=== PATIENT | female | born 1985 | race Caucasian/White ===

== ENCOUNTER 2016-12-22 11:30 | Emergency (ER) | payer OTHER ==
--- NOTE | 2016-12-22 11:45 | PDOC ---
History of Present Illness - General Chief Complaint: Abscess Boil Stated Complaint: ABSCESS Time Seen by Provider: 12/22/16 11:33 History Source: Patient Exam Limitations: No Limitations - History of Present Illness Initial Comments: 12/22/16 11:45 This is a 31 yr old F who presents with complaints of warm tender bump to the right groin [x 1 day. No drainage Pt describes 5/10 pressure like pain w/o radiation. Pt denies having taken any medicines to alleviate their pain. Pain is exacerbated by touch and pressure, no obvious alleviating factors. No surrounding erytehma ROS: GENERAL/CONSTITUTIONAL: No: fever, chills, weakness, loss of appetite. SKIN: Yes: right groin abscess No: lesions, pallor, rash or easy bruising. PE: Head normocephalic, atraumatic Neck: Supple no cervical adenopathy no nuchal rigidity Lungs: Clear to auscultation bilaterally, no wheezes rales or rhonchi appreciated Heart: S1-S2 without murmur Skin: Normal color, 1 cm indurated area, mild local erythema, no drainage, no fluctuance, no streaking, no surounding erythema The patient is significantly tender over the area, without any streaking or bony tenderness surrounding. Past History - Past Medical History Allergies/Adverse Reactions: Allergies Allergy/AdvReac Type Severity Reaction Status Date / Time No Known Allergies Allergy Verified 12/22/16 11:33 Home Medications: Ambulatory Orders Cephalexin Monohydrate [Keflex -] 250 mg PO Q6H #20 capsule 12/22/16 Asthma: Yes - Suicide/Smoking/Psychosocial Hx Smoking History: Never smoked Have you smoked in the past 12 months: No Number of Cigarettes Smoked Daily: 3 Hx Alcohol Use: No Drug/Substance Use Hx: No Substance Use Type: None Medical Decision Making - Medical Decision Making 12/22/16 11:50 31 yo F presenting with 1 day of right groin pain with associated bump Clinical impression: Based on my physical exam findings the patient has a superficial skin abscess located at the right groin which was not ready to be drained. Pt directed to follow up with PCP/Referral within 24-48 hours and to go to ED if they develop any new worsening symptoms. Pt expressed understanding and agreement with above stated plan. Recommend warm compress and antibiotics 12/22/16 11:56 *DC/Admit/Observation/Transfer Diagnosis at time of Disposition: Ingrown hair - Discharge Dispostion Disposition: HOME Condition at time of disposition: Stable Admit: No - Prescriptions Prescriptions: Cephalexin Monohydrate [Keflex -] 250 mg PO Q6H #20 capsule - Referrals Referrals: Jourdan Collier MD [Primary Care Provider] - - Patient Instructions Printed Discharge Instructions: Tips to Help You Stop Smoking, DI for Skin Abscess Additional Instructions: Please apply warm compresses to the area - aim for 10 minutes 2-3 times per day Please tylenol or Motrin for pain. Please take antibiotics as prescribed Please monitor for fevers or chills, increased redness, increased size - Post Discharge Activity Forms/Work/School Notes: Back to Work
[2016-12-22 11:47] VITALS: BP 113/74; PULSE 94; TEMP 98.5; BMI 25.2
== END 2016-12-22 12:04 | disposition home or self-care (01) ==
LOC: FER 11:30
DX: L73.1 Pseudofolliculitis barbae (principal)
CPT/HCPCS: 99281-25

== ENCOUNTER 2017-02-24 19:44 | Emergency (ER) | payer OTHER ==
[2017-02-24 19:53] VITALS: BP 111/62; PULSE 80; TEMP 99.2; BMI 26.2
--- NOTE | 2017-02-24 20:05 | PDOC ---
History of Present Illness - General History Source: Patient Exam Limitations: No Limitations - History of Present Illness Initial Comments: 02/24/17 20:22 The patient is a 31 year old female with a significant past medical history of asthma who presents to the ED with complaints of cough and wheezing since yesterday. The patient reports a gradual onset of a non productive dry cough yesterday while she was at work. She reports throat pain and back pain secondary to cough. The patient also reports intermittent wheezing and shortness of breath. She states she used an inhaler and nebulizer treatment at home with no relief of present symptoms. The patient states she has been around pets recently. Notes her last menstrual period was on 01/10/17. Denies getting her flu shot this year. Denies fever or chills. Denies chest pain. Denies abdominal pain, nausea, vomiting, or diarrhea. Denies any other symptoms. Social hx: The patient is a current every day smoker (3-4 cigarettes a day) and a social drinker. <Bar Arango - Last Filed: 02/24/17 20:31> <Perla Lopez - Last Filed: 02/25/17 05:44> - General Chief Complaint: Asthma Stated Complaint: WHEEZING Past History <Bar Arango - Last Filed: 02/24/17 20:31> - Past Medical History Asthma: Yes COPD: No - Suicide/Smoking/Psychosocial Hx Smoking History: Current every day smoker Have you smoked in the past 12 months: No Number of Cigarettes Smoked Daily: 3 Information on smoking cessation initiated: Yes 'Breaking Loose' booklet given: 02/24/17 Hx Alcohol Use: Yes (OCCASIONAL) Drug/Substance Use Hx: No Substance Use Type: None <Perla Lopez - Last Filed: 02/25/17 05:44> - Past Medical History Allergies/Adverse Reactions: Allergies Allergy/AdvReac Type Severity Reaction Status Date / Time No Known Allergies Allergy Verified 12/22/16 11:33 Home Medications: Ambulatory Orders Albuterol Sulfate Inhaler - [Ventolin HFA Inhaler -] 2 inh PO Q6H #1 inh Albuterol Sulfate Inhaler - [Ventolin Hfa Inhaler -] 1 - 2 inh PO Q4H #1 inhaler 02/24/17 Albuterol Sulfate Inhaler - [Ventolin Hfa Inhaler -] 1 puff IH PRN PRN 02/24/17 Prednisone [Deltasone -] 2 tab PO DAILY #10 tablet 02/24/17 Prednisone [Deltasone -] 2 tab PO DAILY #10 tablet 02/24/17 Review of Systems - Review of Systems Able to Perform ROS?: Yes Comments:: 02/24/17 20:32 CONSTITUTIONAL: No reported: Fever, Chills, Diaphoresis, Generalized Weakness, Malaise, Loss of Appetite HEENT: No reported: Rhinorrhea, Nasal Congestion, Throat Pain, Throat Swelling, Difficulty Swallowing, Mouth Swelling, Ear Pain, Eye Pain, Visual Changes CARDIOVASCULAR: No reported: Chest Pain, Syncope, Palpitations, Irregular Heart Rate, Lightheadedness, Peripheral Edema RESPIRATORY: + cough, wheezing, shortness of breath No reported: Orthopnea, Stridor, Hemoptysis GASTROINTESTINAL: No reported: Abdominal pain, Abdominal Distension, Nausea, Vomiting, Diarrhea, Constipation, Melena, Hematochezia GENITOURINARY: No reported: Dysuria, Frequency, Urgency, Hesitancy, Flank Pain, Genital Pain MUSCULOSKELETAL: No reported: Myalgia, Arthralgia, Joint Swelling, Back pain, Neck Pain SKIN: No reported: Rash, Itching, Pallor HEMEATOLOGIC/IMMUNOLOGIC: No reported: Easy Bleeding, Easy Bruising, Lymphadenopathy, Frequent infections ENDOCRINE: No reported: Unexplained Weight Gain, Unexplained Weight Loss, Heat Intolerance , Cold Intolerance NEUROLOGIC: No reported: Headache, Focal Weakness, Paresthesias, Vertigo, Lightheadedness, Unsteady Gait, Seizure, Mental Status Changes, Incontinence PSYCHIATRIC: No reported: Anxiety, Depression All Other Systems: Reviewed and Negative <Bar Arango - Last Filed: 02/24/17 20:31> *Physical Exam - Vital Signs Last Vital Signs Temp Pulse Resp BP Pulse Ox 99.2 F 80 16 111/62 95 02/24/17 19:51 02/24/17 19:51 02/24/17 19:51 02/24/17 19:51 02/24/17 19:51 - Physical Exam Comments: 02/24/17 20:32 GENERAL: The patient is awake, alert, and fully oriented, Nontoxic - in no acute distress. HEAD: Normocephalic, atraumatic. EYES: extraocular movements intact, sclera anicteric, conjunctiva clear. ENT: Normal voice, Moist mucous membranes. NECK: Normal range of motion, supple LUNGS: + diffuse wheezing throughout. no rhonchi, no rales. HEART: Regular rate and rhythm, without murmur, rub or gallop. ABDOMEN: Soft, nontender, normoactive bowel sounds. No guarding, no rebound.No CVA tenderness EXTREMITIES: Normal range of motion, no edema. No clubbing or cyanosis. No cords, erythema, or tenderness. NEUROLOGICAL: No facial assymetry, Normal speech, PSYCH: Normal mood, normal affect. SKIN: Warm, Dry, normal turgor, <Bar Arango - Last Filed: 02/24/17 20:31> - Vital Signs Last Vital Signs Temp Pulse Resp BP Pulse Ox 99.2 F 80 16 111/62 95 02/24/17 19:51 02/24/17 19:51 02/24/17 19:51 02/24/17 19:51 02/24/17 19:51 <Perla Lopez - Last Filed: 02/25/17 05:44> ED Treatment Course - Medications Given in the ED: ED Medications Discontinued Medications Generic Name Dose Route Start Last Admin Trade Name Freq PRN Reason Stop Dose Admin Albuterol/Ipratropium 1 amp 02/24/17 20:14 02/24/17 20:18 Duoneb - NEB 02/24/17 20:15 1 amp ONCE ONE Administration Prednisone 40 mg 02/24/17 20:14 02/24/17 20:18 Deltasone - PO 02/24/17 20:15 40 mg ONCE ONE Administration <Bar Arango - Last Filed: 02/24/17 20:31> Medical Decision Making - Medical Decision Making 02/25/17 05:42 Pt comes with cough x 1 day. She has asthma and she is a smoker. 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 Pt with simlpel asthma exacerbation; likely viral URI Initial PF 210 up to 240 and improving after nebs. CXR normal. She will be discharged with meds. Reccomend smoking cessation. Follow with PMD. <Perla Lopez - Last Filed: 02/25/17 05:44> *DC/Admit/Observation/Transfer - Attestations Scribe Attestion: 02/24/17 20:32 Documentation prepared by Bar Arango, acting as medical lab scientist for Perla Lopez MD <Bar Arango - Last Filed: 02/24/17 20:31> - Discharge Dispostion Admit: No <Perla Lopez - Last Filed: 02/25/17 05:44> Diagnosis at time of Disposition: Asthma, Viral upper respiratory illness - Discharge Dispostion Disposition: HOME Condition at time of disposition: Improved - Prescriptions Prescriptions: Albuterol Sulfate Inhaler - [Ventolin Hfa Inhaler -] 1 - 2 inh PO Q4H #1 inhaler Albuterol Sulfate Inhaler - [Ventolin HFA Inhaler -] 2 inh PO Q6H #1 inh Prednisone [Deltasone -] 2 tab PO DAILY #10 tablet Prednisone [Deltasone -] 2 tab PO DAILY #10 tablet - Referrals Referrals: Jourdan Collier MD [Primary Care Provider] - - Patient Instructions Printed Discharge Instructions: Smoking Cessation Drugs: Nicotine Replacement Products, Asthma -- Adult, Smoking Cessation Associated with Decreases Risk of Complications After Mick - Post Discharge Activity Forms/Work/School Notes: Back to Work
[2017-02-24] MEDS ORDERED: ALBUTEROL SO4 2.5/IPRATROPIUM 0.5 INH SOL 3 ML VIAL.NEB. NEB ONE ×3 (20:14→21:05)
[2017-02-24] MEDS ORDERED: predniSONE 20 MG TABLET (UD) PO ONE (20:14)
== END 2017-02-24 21:30 | disposition home or self-care (01) ==
LOC: FER 19:44
PROC: 3E0F7GC Introduction of Other Therapeutic Substance into Respiratory Tract, Via Natural or Artificial Opening (ICD-10-PCS; principal; 2017-02-24)
DX: J45.909 Unspecified asthma, uncomplicated (principal); J06.9 Acute upper respiratory infection, unspecified; B97.89 Other viral agents as the cause of diseases classified elsewhere; F17.210 Nicotine dependence, cigarettes, uncomplicated
CPT/HCPCS: 71020-TC; 99281-25

== ENCOUNTER 2020-05-03 08:06 | Emergency (ER) | payer OTHER ==
[2020-05-03 08:47] VITALS: BP 111/62; PULSE 90; TEMP 98.6; BMI 27.2
== END 2020-05-03 08:58 | disposition home or self-care (01) ==
LOC: FER 08:06
DX: R09.81 Nasal congestion (principal); Z11.52 Encounter for screening for COVID-19
CPT/HCPCS: 99283-25; C9803; U0003

== ENCOUNTER 2021-02-06 18:28 | Observation (INO) | payer OTHER ==
[2021-02-06 18:58] VITALS: BMI 24.4
[2021-02-06] MEDS ORDERED: SODIUM CHLORIDE 0.9% 500 ML INFUS.BAG IV ONE (22:47)
[2021-02-06] MEDS ORDERED: ACETAMINOPHEN 500 MG TABLET (FP) PO ONE (22:51)
[2021-02-06] MEDS ORDERED: ACETAMINOPHEN INJECTION 100 ML IVPB ONE (22:53)
[2021-02-06] MEDS ORDERED: ACETAMINOPHEN 1000 MG/100 ML VIAL IVPB ONE (22:59)
[2021-02-06 23:09] LABS: BASO % 0.7 % (0-2.0); EOS % 0.5 % (0-4.5); HEMATOCRIT 35.6 % (32.4-45.2); HEMOGLOBIN 12.1 GM/dL (10.7-15.3); LYMPH % 22.6 % (8-40); MCH 31.3 pg (25.7-33.7); MEAN CELL VOLUME 92.1 fl (80-96); MEAN PLT VOLUME 6.8 fl (7.5-11.1); MONO % 5.9 % (3.8-10.2); NEUT % 70.3 % (42.8-82.8); PLATELET COUNT 229 10^3/uL (134-434); RBC 3.86 M/mm3 (3.60-5.2); RDW 13.5 % (11.6-15.6); WHITE BLOOD COUNT 11.5 K/mm3 (4.0-10.0)
[2021-02-06 23:28] LABS: CALCIUM 8.5 mg/dL (8.5-10.1)
[2021-02-06 23:29] LABS: ALBUMIN 3.1 g/dl (3.4-5.0); BLOOD UREA NITROGEN 6.9 mg/dL (7-18)
[2021-02-06 23:32] LABS: CREATININE 0.4 mg/dL (0.55-1.3)
[2021-02-06 23:33] LABS: BILIRUBIN,TOTAL 0.3 mg/dL (0.2-1); TOT PROT 6.8 g/dl (6.4-8.2)
[2021-02-07 00:16] LABS: EPI CELLS 5 /uL (0-25.1); HYALINE CASTS 1 /uL (0-3.1); URINE APPEARANCE CLOUDY; URINE BACTERIA 523 /uL (0-1359); URINE BILIRUBIN NEGATIVE (NEGATIVE); URINE COLOR YELLOW; URINE GLUCOSE (UA) NEGATIVE (NEGATIVE); URINE KETONE TRACE (NEGATIVE); URINE LEUK ESTERASE 2+ (NEGATIVE); URINE NITRITE NEGATIVE (NEGATIVE); URINE PROTEIN 2+ (NEGATIVE); URINE RBC 286 /uL (0-23.9); URINE UROBILINOGEN 0.2 mg/dL (0.2-1.0); URINE WBC 2873 /uL (0-25.8)
[2021-02-07] MEDS ORDERED: CEFTRIAXONE 1,000 MG in DEXTROSE 5%-WATER - 50 ML IVPB ONE (00:48)
[2021-02-07] MEDS ORDERED: CEFTRIAXONE 1 GM/50 ML BAG ONE ×2 (02:21→14:33)
[2021-02-07] MEDS ORDERED: LACTATED RINGERS SOLUTION 1000 ML INFUS.BAG IV ONE (06:39)
[2021-02-07] MEDS ORDERED: FLU VACC QS2021-22(6MOS UP)/PF 60 MCG/0.5 ML SYRINGE IM ONE (12:54)
[2021-02-07] MEDS ORDERED: CEFTRIAXONE 1 GM in DEXTROSE 5%-WATER - 50 ML IVPB SCH ×2 (14:00→22:00)
[2021-02-08 07:34] LABS: BASO % 0.4 % (0-2.0); EOS % 1.1 % (0-4.5); HEMATOCRIT 31.8 % (32.4-45.2); HEMOGLOBIN 11.1 GM/dL (10.7-15.3); LYMPH % 25.3 % (8-40); MEAN CELL VOLUME 91.4 fl (80-96); MEAN PLT VOLUME 7.3 fl (7.5-11.1); MONO % 5.6 % (3.8-10.2); NEUT % 67.6 % (42.8-82.8); PLATELET COUNT 213 10^3/uL (134-434); RBC 3.48 M/mm3 (3.60-5.2); RDW 13.5 % (11.6-15.6); WHITE BLOOD COUNT 8.7 K/mm3 (4.0-10.0)
[2021-02-08 08:54] VITALS: BP 96/57; PULSE 67; TEMP 99.3
[2021-02-08] MEDS ORDERED: cefTRIAXone SODIUM 1 GM VIAL ONE (13:15)
[2021-02-08] MEDS ORDERED: DEXTROSE 5%-WATER - 50 ML IVPB ONE (13:16)
[2021-02-08] MEDS ORDERED: CEFTRIAXONE 1 GM in DEXTROSE 5%-WATER - 50 ML IVPB SCH (14:00)
[2021-02-08] MEDS ORDERED: CEPHALEXIN MONOHYDRATE 500 MG CAPSULE (UD) PO SCH (18:00)
== END 2021-02-08 16:49 | disposition home or self-care (01) ==
LOC: JERFT 18:28 → JERBED 02-07 00:49 → J4W 02-07 21:58
PROVIDERS: ADMIT Internal Medicine; ATTEND Internal Medicine
PROC: 3E033NZ Introduction of Analgesics, Hypnotics, Sedatives into Peripheral Vein, Percutaneous Approach (ICD-10-PCS; principal; 2021-02-07)
PROC: 3E03329 Introduction of Other Anti-infective into Peripheral Vein, Percutaneous Approach (ICD-10-PCS; 2021-02-07)
PROC: 3E0337Z Introduction of Electrolytic and Water Balance Substance into Peripheral Vein, Percutaneous Approach (ICD-10-PCS; 2021-02-07)
DX: R10.9 Unspecified abdominal pain (principal); R10.31 Right lower quadrant pain; J45.909 Unspecified asthma, uncomplicated; O26.92 Pregnancy related conditions, unspecified, second trimester; Z3A.14 14 weeks gestation of pregnancy; Z87.891 Personal history of nicotine dependence; N39.0 Urinary tract infection, site not specified; O34.82 Maternal care for other abnormalities of pelvic organs, second trimester; N10 Acute pyelonephritis; D56.3 Thalassemia minor; N83.209 Unspecified ovarian cyst, unspecified side
CPT/HCPCS: 36415; 76775-TC; 76801-TC; 80053; 81003; 84702; 85025; 86850; 86900; 86901; 87086; 87186; 96365; 96366; 96375; 99285-25; C9803; G0378; J0131; U0003; U0005

== ENCOUNTER 2021-08-14 07:30 | Inpatient (IN) | payer OTHER ==
[2021-08-14 08:31] VITALS: BMI 30.1
[2021-08-14] MEDS ORDERED: FENTANYL/BUPIVACAINE/NS/PF - PCEA - 50 ML DISP.SYRIN EP ONE (08:35)
[2021-08-14 08:44] LABS: BASO % 0.4 % (0-2.0); EOS % 0.2 % (0-4.5); HEMATOCRIT 34.2 % (32.4-45.2); HEMOGLOBIN 11.3 GM/dL (10.7-15.3); LYMPH % 10.6 % (8-40); MCH 28.8 pg (25.7-33.7); MEAN CELL VOLUME 87.2 fl (80-96); MEAN PLT VOLUME 7.8 fl (7.5-11.1); MONO % 2.4 % (3.8-10.2); NEUT % 86.4 % (42.8-82.8); PLATELET COUNT 194 10^3/uL (134-434); RBC 3.92 M/mm3 (3.60-5.2); RDW 18.3 % (11.6-15.6); WHITE BLOOD COUNT 12.6 K/mm3 (4.0-10.0)
[2021-08-14 08:50] LABS: INR 0.97 (0.83-1.09); PROTHROMBIN TIME (PATIENT) 11.1 SEC (9.7-13.0)
[2021-08-14 09:02] LABS: BLOOD UREA NITROGEN 8.2 mg/dL (7-18); CALCIUM 8.9 mg/dL (8.5-10.1)
[2021-08-14 09:06] LABS: CREATININE 0.5 mg/dL (0.55-1.3)
[2021-08-14] MEDS ORDERED: NALOXONE HCL 0.4 MG/ML VIAL IVPUSH PRN (09:14)
[2021-08-14] MEDS ORDERED: FENTANYL/BUPIVACAINE/NS/PF - PCEA - 50 ML DISP.SYRIN EP SCH (09:15)
[2021-08-14] MEDS ORDERED: ELECTROLYTE-148 SOLN 1,000 ML IV SCH (09:45)
[2021-08-14 10:10] LABS: COCAINE, UR NEGATIVE (NEGATIVE); OPIATES, URI NEGATIVE (NEGATIVE); URINE BARBITURATES NEGATIVE (NEGATIVE)
[2021-08-14 10:18] LABS: METHADONE, UR NEGATIVE (NEGATIVE); PHENCYCLIDINE,URINE NEGATIVE (NEGATIVE); URINE AMPHETAMINES NEGATIVE (NEGATIVE); URINE BENZODIAZEPINES NEGATIVE (NEGATIVE)
[2021-08-14] MEDS ORDERED: OXYTOCIN 30 UNITS in 0.9% NS 30 UNIT/500 ML INFUS.BAG IVPB ONE (11:03)
[2021-08-14] MEDS ORDERED: OXYTOCIN 20 UNITS in 0.9% NS 20 UNIT/1,000 ML INFUS.BAG IV ONE (12:18)
[2021-08-14] MEDS ORDERED: METHYLERGONOVINE MALEATE 0.2 MG/1 ML AMP IM PRN (12:31)
[2021-08-14] MEDS ORDERED: ACETAMINOPHEN 325 MG TABLET (FP) PO PRN (12:31)
[2021-08-14] MEDS ORDERED: SIMETHICONE 80 MG TAB.CHEW (FP) PO PRN (12:31)
[2021-08-14] MEDS ORDERED: OXYTOCIN 20 UNITS in 0.9% NS 20 UNIT/1,000 ML INFUS.BAG IV SCH (12:45)
[2021-08-14 13:06] LABS: CORD HCO3 22.9 mmHg (20-29); CORD PCO2 71.6 mmHg (30-78); CORD pH 7.123 (7.14-7.44)
[2021-08-14 13:09] LABS: CORD HCO3 20.3 mmHg (20-29); CORD PCO2 57.5 mmHg (30-78); CORD pH 7.166 (7.14-7.44)
[2021-08-15] MEDS ORDERED: oxyCODONE HCL 5 MG TABLET PO PRN (00:31)
[2021-08-15] MEDS: IBUPROFEN 600 MG TABLET (FP) PO PRN ×2 (05:09→19:35)
[2021-08-15 08:31] LABS: BASO % 0.4 % (0-2.0); EOS % 0.4 % (0-4.5); HEMATOCRIT 30.6 % (32.4-45.2); HEMOGLOBIN 9.9 GM/dL (10.7-15.3); LYMPH % 18.5 % (8-40); MCH 28.4 pg (25.7-33.7); MCHC 32.3 g/dl (32.0-36.0); MEAN PLT VOLUME 8.3 fl (7.5-11.1); MONO % 4.8 % (3.8-10.2); NEUT % 75.9 % (42.8-82.8); PLATELET COUNT 180 10^3/uL (134-434); RBC 3.48 M/mm3 (3.60-5.2); RDW 18.3 % (11.6-15.6); WHITE BLOOD COUNT 12.7 K/mm3 (4.0-10.0)
[2021-08-15] MEDS ORDERED: FLU VACC QS2021-22(6MOS UP)/PF 60 MCG/0.5 ML SYRINGE IM ONE (10:00)
[2021-08-15] MEDS ORDERED: BISACODYL 10 MG SUPP.RECT RC PRN (12:31)
[2021-08-16] MEDS: IBUPROFEN 600 MG TABLET (FP) PO PRN (06:05)
[2021-08-16 11:12] VITALS: BP 109/70; PULSE 74; TEMP 98
== END 2021-08-16 13:25 | disposition home or self-care (01) | DRG 560 ==
LOC: JLDR 07:30 → J3W 13:45
PROVIDERS: ADMIT Obstetrics & Gynecology; ATTEND Obstetrics & Gynecology
PROC: 10D07Z6 Extraction of Products of Conception, Vacuum, Via Natural or Artificial Opening (ICD-10-PCS; principal; 2021-08-14)
PROC: 0W8NXZZ Division of Female Perineum, External Approach (ICD-10-PCS; 2021-08-14)
DX: O77.0 Labor and delivery complicated by meconium in amniotic fluid (principal); Z3A.40 40 weeks gestation of pregnancy; Z37.0 Single live birth
CPT/HCPCS: 36415; 36600; 59409; 80048; 80307; 82803; 85025; 85610; 85730; 86780; 86850; 86900; 86901; 88307-TC; 90686; C9803-CS; G0008; U0003; U0005